=== PATIENT | male | born 1940 | race Caucasian/White ===

== ENCOUNTER → 2022-07-23 | Outpatient (CLI) | payer MEDICARE, BC ==
[2022-07-23 15:47] LABS: ALT 22 U/L (10-49); AST 28 U/L (14-35); African American GFR (CKD) 59.3 (60.0-200.0); Albumin 4.4 g/dL (3.8-4.9); Albumin/Globulin Ratio 1.63 (1.60-3.17); Alkaline Phosphatase 85 U/L (41-126); BUN/Creat Ratio 25.54 Ratio (12.00-20.00); Blood Urea Nitrogen 33.2 mg/dL (9.0-27.0); Calcium 9.8 mg/dL (8.7-10.3); Carbon Dioxide 30.1 mmol/L (20.0-27.5); Chloride 99 mmol/L (96-109); Chol/HDL Ratio 4.23 Ratio; Globulin 2.7 g/dL (1.6-3.3); Glucose 103 mg/dL (70-110); LDL Cholesterol,Calculated 114.7 mg/dL (0.0-131.0); Non-African American GFR(CKD) 51.2 (60.0-200.0); Potassium 3.5 mmol/L (3.5-5.5); Sodium 141 mmol/L (135-145); Total Protein 7.1 g/dL (6.2-8.2)
== END | disposition home or self-care (01) ==
LOC: LABWHC1 09:35
PROVIDERS: ATTEND Internal Medicine Interventional Cardiology
DX: E78.2 Mixed hyperlipidemia (principal)
CPT/HCPCS: 36415; 80053; 80061

== ENCOUNTER 2023-06-07 11:36 | Emergency (ER) | payer MEDICARE, BC ==
--- NOTE | 2023-06-07 13:10 | ED ---
General Adult HPI - General Chief complaint: Headache Stated complaint: Headache Time Seen by Provider: 06/07/23 12:04 Source: patient, RN notes reviewed, old records reviewed Mode of arrival: ambulatory Limitations: no limitations - History of Present Illness Initial comments: 83-year-old male presenting for evaluation of right frontal and retro-orbital headache. Symptoms have been intermittent over the past several days. Patient denies trauma. Denies nasal congestion, denies cough or cold symptoms. Denies fever. He does report some intermittent blurry vision to the right eye. No eye pain currently. No vision change currently. Headache is present but improved from prior severity. No focal numbness or weakness. - Related Data Home Medications Medication Instructions Recorded Confirmed Atorvastatin [Lipitor] 20 mg PO DIRECTED 05/15/22 06/07/23 Escitalopram [Lexapro] 10 mg PO DIRECTED 05/15/22 06/07/23 Finasteride [Proscar] 5 mg PO DAILY 05/15/22 06/07/23 Multivitamins, Thera [Multivitamin 1 tab PO DAILY 05/15/22 06/07/23 (formulary)] Omeprazole [PriLOSEC] 20 mg PO DAILY 05/15/22 06/07/23 amLODIPine [Norvasc] 5 mg PO DIRECTED 05/15/22 06/07/23 Acetaminophen Tab [Tylenol Tab] 500 mg PO BID 06/07/23 06/07/23 Ascorbic Acid [Vitamin C] 500 mg PO DAILY 06/07/23 06/07/23 Cholecalciferol [Vitamin D3 (25 25 mcg PO DAILY 06/07/23 06/07/23 Mcg = 1000 Iu)] Ibuprofen [Motrin Ib] 200 mg PO DAILY 06/07/23 06/07/23 Potassium Chloride ER [K-Dur 20] 20 meq PO DAILY 06/07/23 06/07/23 Previous Rx's Medication Instructions Recorded Chlorthalidone [Hygroton] 25 mg PO DAILY #30 tablet 05/15/22 Allergies Allergy/AdvReac Type Severity Reaction Status Date / Time diflunisal Allergy Rash/Hives Verified 06/07/23 16:09 Review of Systems ROS Statement: Those systems with pertinent positive or pertinent negative responses have been documented in the HPI. ROS Other: All systems not noted in ROS Statement are negative. 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 History of Any Multi-Drug Resistant Organisms: None Reported Past Surgical History: Appendectomy, Tonsillectomy Additional Past Surgical History / Comment(s): right shoulder Past Anesthesia/Blood Transfusion Reactions: No Reported Reaction Past Psychological History: No Psychological Hx Reported Smoking Status: Never smoker Past Alcohol Use History: None Reported Past Drug Use History: None Reported - Past Family History Mother Family Medical History: Coronary Artery Disease (CAD) Father Family Medical History: CVA/TIA General Exam Limitations: no limitations General appearance: alert, in no apparent distress Head exam: Present: atraumatic, normocephalic Eye exam: Present: normal appearance, PERRL, EOMI, other (No proptosis, no periorbital swelling) Neck exam: Present: normal inspection. Absent: tenderness, meningismus Respiratory exam: Present: normal lung sounds bilaterally. Absent: respiratory distress, wheezes Cardiovascular Exam: Present: regular rate, normal rhythm GI/Abdominal exam: Present: soft. Absent: distended, tenderness, guarding Extremities exam: Present: normal inspection, normal capillary refill Neurological exam: Present: alert, oriented X3, CN II-XII intact. Absent: motor sensory deficit Psychiatric exam: Present: normal affect, normal mood Skin exam: Present: warm, dry, intact. Absent: cyanosis, diaphoretic Course Vital Signs 06/07/23 06/07/23 06/07/23 11:43 15:43 16:48 Temperature 97.8 F 98 F Pulse Rate 72 68 70 Respiratory 16 16 18 Rate Blood Pressure 145/61 142/73 137/99 O2 Sat by Pulse 97 100 98 Oximetry Medical Decision Making - Medical Decision Making Was pt. sent in by a medical professional or institution (, PA, EXTRUSION PRESS OPERATOR, urgent care, hospital, or long-term...) When possible be specific @ -No Did you speak to anyone other than the patient for history (EMS, parent, family, police, friend...)? What history was obtained from this source @ -No Did you review nursing and triage notes (agree or disagree)? Why? @ -I reviewed and agree with nursing and triage notes Were old charts reviewed (outside hosp., previous admission, EMS record, old EKG, old radiological studies, urgent care reports/EKG's, long-term records)? Report findings @ -No old charts were reviewed Differential Diagnosis (chest pain, altered mental status, abdominal pain women, abdominal pain men, vaginal bleeding, weakness, fever, dyspnea, syncope, headache, dizziness, GI bleed, back pain, seizure, CVA, palpatations, mental health, musculoskeletal)? @ -[Differential Headache: Migraine, tension, cluster, carbon monoxide, central venous thrombosis, pension karma temporal arteritis, acute closure glaucoma, intercranial hemorrhage, mastoiditis, sinusitis, head injury, this is not meant to be an all-inclusive list. EKG interpreted by me (3pts min.). @ -As above X-rays interpreted by me (1pt min.). @ -None done CT interpreted by me (1pt min.). @CT negative for intracranial hemorrhage or mass effect U/S interpreted by me (1pt. min.). @ -None done What testing was considered but not performed or refused? (CT, X-rays, U/S, labs)? Why? @ -None What meds were considered but not given or refused? Why? @ -None Did you discuss the management of the patient with other professionals (professionals i.e. , PA, EXTRUSION PRESS OPERATOR, lab, RT, psych nurse, social services assistant, semiconductor processing group leader, teacher, chief development officer, social work case manager)? Give summary @ -No Was smoking cessation discussed for >3mins.? @ -No Was critical care preformed (if so, how long)? @ -No Were there social determinants of health that impacted care today? How? (Homelessness, low income, unemployed, alcoholism, drug addiction, transportation, low edu. Level, literacy, decrease access to med. care, custodial, rehab)? @ -No Was there de-escalation of care discussed even if they declined (Discuss DNR or withdrawal of care, Hospice)? DNR status @ -No What co-morbidities impacted this encounter? (DM, HTN, Smoking, COPD, CAD, Cancer, CVA, ARF, Chemo, Hep., AIDS, mental health diagnosis, sleep apnea, morbid obesity)? @ -None Was patient admitted / discharged? Hospital course, mention meds given and route, prescriptions, significant lab abnormalities, going to OR and other pertinent info. @ -83-year-old male with several days of headache. This was gradual onset and intermittent. He has no temporal tenderness. He did have some blurred vision which is resolved. No proptosis. Intraocular pressure is 11. Patient has no focal neurologic findings. He has a normal CBC, CMP showing mild elevation in serum creatinine at 1.29. His CRP is 3. I would prefer an ESR but this is a send out lab and takes 24 hours to result. Patient states he is capable of following up with his primary care provider regarding this lab test. Return parameters discussed. Stable for discharge at this time. Undiagnosed new problem with uncertain prognosis? @ -No Drug Therapy requiring intensive monitoring for toxicity (Heparin, Nitro, Insulin, Cardizem)? @ -No Were any procedures done? @ -No Diagnosis/symptom? @ -Headache Acute, or Chronic, or Acute on Chronic? @ -[Acute Uncomplicated (without systemic symptoms) or Complicated (systemic symptoms)? @ -Default Side effects of treatment? @ -No Exacerbation, Progression, or Severe Exacerbation? @ -No Poses a threat to life or bodily function? How? (Chest pain, [place], [place], pneumonia, PE, COPD, DKA, ARF, appy, cholecystitis, CVA, Diverticulitis, Homicidal, Suicid al, threat to staff... and all critical care pts) @ -No - Lab Data Result diagrams: 06/07/23 14:04 06/07/23 14:04 Lab Results 06/07/23 06/07/23 06/07/23 Range/Units 14:04 14:04 14:04 WBC 9.1 (3.8-10.6) k/uL RBC 5.36 (4.30-5.90) m/uL Hgb 14.4 (13.0-17.5) gm/dL Hct 47.2 (39.0-53.0) % MCV 88.0 (80.0-100.0) fL MCH 26.9 (25.0-35.0) pg MCHC 30.6 L (31.0-37.0) g/dL RDW 15.1 (11.5-15.5) % Plt Count 338 (150-450) k/uL MPV 6.9 Neutrophils % 72 % Lymphocytes % 14 % Monocytes % 8 % Eosinophils % 3 % Basophils % 0 % Neutrophils # 6.6 (1.3-7.7) k/uL Lymphocytes # 1.3 (1.0-4.8) k/uL Monocytes # 0.8 (0-1.0) k/uL Eosinophils # 0.3 (0-0.7) k/uL Basophils # 0.0 (0-0.2) k/uL ESR 39 H (0-20) mm/Hr Sodium 138 (137-145) mmol/L Potassium 3.3 L (3.5-5.1) mmol/L Chloride 100 (98-107) mmol/L Carbon Dioxide 30 (22-30) mmol/L Anion Gap 8 mmol/L BUN 34 H (9-20) mg/dL Creatinine 1.29 H (0.66-1.25) mg/dL Est GFR (CKD-EPI)AfAm 59 (>60 ml/min/1.73 sqM) Est GFR (CKD-EPI)NonAf 51 (>60 ml/min/1.73 sqM) Glucose 97 (74-99) mg/dL Calcium 8.8 (8.4-10.2) mg/dL Total Bilirubin 0.9 (0.2-1.3) mg/dL AST 29 (17-59) U/L ALT 21 (4-49) U/L Alkaline Phosphatase 101 (38-126) U/L C-Reactive Protein 3.0 H (<1.0) mg/dL Total Protein 6.9 (6.3-8.2) g/dL Albumin 4.0 (3.5-5.0) g/dL Influenza Type A (PCR) Not Detected (Not Detectd) Influenza Type B (PCR) Not Detected (Not Detectd) RSV (PCR) Not Detected (Not Detectd) SARS-CoV-2 (PCR) Not Detected (Not Detectd) Disposition Clinical Impression: Headache Disposition: HOME SELF-CARE Condition: Fair Instructions (If sedation given, give patient instructions): Acute Headache (ED) Additional Instructions: He has follow-up with Dr. Johnson regarding your ESR level. Please return with worsening or changing symptoms Is patient prescribed a controlled substance at d/c from ED?: No Referrals: Angelo Johnson MD [Primary Care Provider] - 1-2 days Time of Disposition: 16:15
--- NOTE | 2023-06-07 13:36 | CT ---
EXAMINATION TYPE: CT brain wo con DATE OF EXAM: 06/07/2023 COMPARISON: None HISTORY: Headache CT DLP: 1177.[address] of the brain was performed. The ventricles, basal cisterns and sulci overlying the cerebral convexities demonstrate mild enlargem ent. There is no evidence for intracranial hemorrhage or sulcal effacement. There is decreased attenuation about the periventricular white matter and deep white matter of both c erebral hemispheres, compatible with chronic small vessel ischemia. Differential diagnosis does inclu de demyelination. No mass effects are seen.No midline shift. Osseous calvarium is intact. If symptoms persist consider MRI. IMPRESSION: 1. Age related atrophic and chronic small vessel ischemic change without acute intracranial process s een at this time.
[2023-06-07 14:16] LABS: Basophils % (A) 0 %; Eosinophils # (A) 0.3 k/uL (0-0.7); Eosinophils % (A) 3 %; HCT 47.2 % (39.0-53.0); HGB 14.4 gm/dL (13.0-17.5); Lymphocytes # (A) 1.3 k/uL (1.0-4.8); Lymphocytes % (A) 14 %; MCH 26.9 pg (25.0-35.0); MCHC 30.6 g/dL (31.0-37.0); Mean Platelet Volume 6.9; Monocytes # (A) 0.8 k/uL (0-1.0); Monocytes % (A) 8 %; Neutrophils # (A) 6.6 k/uL (1.3-7.7); Neutrophils % (A) 72 %; Platelet Count 338 k/uL (150-450); RBC 5.36 m/uL (4.30-5.90); RDW 15.1 % (11.5-15.5); WBC 9.1 k/uL (3.8-10.6)
[2023-06-07 14:31] LABS: ALT 21 U/L (4-49); AST 29 U/L (17-59); African American GFR (CKD) 59 (>60 ml/min/1.73 sqM); Alkaline Phosphatase 101 U/L (38-126); Anion Gap 8 mmol/L; Blood Urea Nitrogen 34 mg/dL (9-20); Calcium 8.8 mg/dL (8.4-10.2); Carbon Dioxide 30 mmol/L (22-30); Chloride 100 mmol/L (98-107); Glucose 97 mg/dL (74-99); Non-African American GFR(CKD) 51 (>60 ml/min/1.73 sqM); Potassium 3.3 mmol/L (3.5-5.1); Sodium 138 mmol/L (137-145); Total Bilirubin 0.9 mg/dL (0.2-1.3); Total Protein 6.9 g/dL (6.3-8.2)
[2023-06-07] MEDS: SODIUM CHLORIDE 0.9% 500 ML 500 ML IV ONE (15:38)
[2023-06-07 17:07] VITALS: BP 137/99; PULSE 70; RESP 18; TEMP 98
[2023-06-07 19:01] LABS: Erythrocyte Sedimentation Rate 39 mm/Hr (0-20)
== END 2023-06-07 16:54 | disposition home or self-care (01) ==
LOC: EC 11:36
DX: R51.9 Headache, unspecified (principal); Z11.52 Encounter for screening for COVID-19; Z88.8 Allergy status to other drugs, medicaments and biological substances
CPT/HCPCS: 36415; 70450; 80053; 85025; 85652; 86140; 87636; 96360; 99284

== ENCOUNTER → 2023-06-18 | Outpatient (CLI) | payer MEDICARE, BC ==
[2023-06-18 16:34] LABS: Blood Urea Nitrogen 38.7 mg/dL (9.0-27.0)
== END | disposition home or self-care (01) ==
LOC: LABWHC1 11:16
PROVIDERS: ATTEND Ophthalmology
DX: H47.019 Ischemic optic neuropathy, unspecified eye (principal)
CPT/HCPCS: 36415; 82565; 84520

== ENCOUNTER → 2023-07-02 | Outpatient (CLI) | payer MEDICARE, BC ==
--- NOTE | 2023-07-03 12:30 | MR ---
EXAMINATION TYPE: MR orbits wo/w con DATE OF EXAM: 07/02/2023 COMPARISON: CT brain June 07, 2023 HISTORY: Rt eye vision loss, pain with chewing and swallowing, Giant Cell Arteritis TECHNIQUE: Multiplanar, multisequence images of the brain and brainstem is performed without and with IV contras t, utilizing 6.5 mL intravenous Gadavist . Orbital protocol. FINDINGS: Midline structures demonstrate normal morphology. The craniocervical junction appears within normal limits. Some new focal fluid dependently in the right maxillary sinus axial image 4 series 401. Some new Mild -to-moderate mucosal thickening involving anterior ethmoid sinuses bilaterally. The globes are intact bilaterally. The rectus muscles are symmetric and felt within normal limits. Pi tuitary stalk shows normal enhancement in the midline. Optic chiasm is not effaced. Suprasellar ciste rn is maintained. IMPRESSION: Intraorbital findings within normal limits. Some new paranasal sinus disease is noted.
== END | disposition home or self-care (01) ==
LOC: RADMRIMAIN 09:02
PROVIDERS: ATTEND Ophthalmology
DX: M31.6 Other giant cell arteritis (principal)
CPT/HCPCS: 70543; A9585

== ENCOUNTER 2023-09-03 10:27 | Emergency (ER) | payer MEDICARE, BC ==
--- NOTE | 2023-09-03 12:16 | ED ---
General Adult HPI - General Source: patient Mode of arrival: ambulatory Limitations: no limitations <Juju Verma - Last Filed: 09/03/23 15:50> - General Source: RN notes reviewed, old records reviewed Mode of arrival: ambulatory Limitations: no limitations <Catracho Patel - Last Filed: 09/03/23 18:17> - General Chief complaint: Eye Problems Stated complaint: Eye Problem - History of Present Illness Initial comments: 83-year-old male who presents emergency department with visual disturbance. Patient states he originally started having visual disturbances back in June. He lost the vision in the lower half of his right eye. This has been constant. He was diagnosed with optic neuritis and temporal arteritis. He is under the care of Dr. Henderson. He is currently on a steroid dose and takes 40 mg a day. Patient started having a visual disturbance in his left eye which was previously his good eye. This was 1.5 weeks ago. States he was having blue flashes which is how his visual loss in his right eye for started. He followed up with his primary care doctor today as he was concerned that his good eye would now lose vision. They sent him immediately to the hospital for evaluation. He denies any headaches or temporal pain at this time. No fevers. He denies any numbness, tingling or weakness in his extremities. No history of strokes. No history of MS. the visual disturbance in his left eye is not present at this time. No other alleviating, precipitating or modifying factors (Juju Verma) This is an 83-year-old male to the ER for evaluation of visual disturbance. Patient currently has no vision complaints (Catracho Patel) - Related Data Home Medications Medication Instructions Recorded Confirmed Atorvastatin [Lipitor] 20 mg PO DIRECTED 05/15/22 09/03/23 Escitalopram [Lexapro] 10 mg PO DIRECTED 05/15/22 09/03/23 Finasteride [Proscar] 5 mg PO DAILY 05/15/22 09/03/23 Multivitamins, Thera [Multivitamin 1 tab PO DAILY 05/15/22 09/03/23 (formulary)] Omeprazole [PriLOSEC] 20 mg PO DAILY 05/15/22 09/03/23 amLODIPine [Norvasc] 5 mg PO HS 05/15/22 09/03/23 Acetaminophen Tab [Tylenol Tab] 500 mg PO BID 06/07/23 09/03/23 Ascorbic Acid [Vitamin C] 500 mg PO DAILY 06/07/23 09/03/23 Cholecalciferol [Vitamin D3 (25 25 mcg PO DAILY 06/07/23 09/03/23 Mcg = 1000 Iu)] Ibuprofen [Motrin Ib] 200 mg PO DAILY 06/07/23 09/03/23 Potassium Chloride ER [K-Dur 20] 20 meq PO BID 06/07/23 09/03/23 Brimonidine Tartrate [Alphagan P 1 drop RIGHT EYE BID 09/03/23 09/03/23 0.1% Ophth Soln] predniSONE [Deltasone] 40 mg PO DAILY 09/03/23 09/03/23 Previous Rx's Medication Instructions Recorded Chlorthalidone [Hygroton] 25 mg PO DAILY #30 tablet 05/15/22 Aspirin [Marion Aspirin EC] 81 mg PO BID #60 tab 09/03/23 Allergies Allergy/AdvReac Type Severity Reaction Status Date / Time diflunisal Allergy Rash/Hives Verified 09/03/23 16:01 Review of Systems ROS Other: All systems not noted in ROS Statement are negative. <Juju Verma - Last Filed: 09/03/23 15:50> ROS Other: All systems not noted in ROS Statement are negative. <Catracho Patel - Last Filed: 09/03/23 18:17> ROS Statement: Those systems with pertinent positive or pertinent negative responses have been documented in the HPI. 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, optic neuritis, History of Any Multi-Drug Resistant Organisms: None Reported Past Surgical History: Appendectomy, Tonsillectomy Additional Past Surgical History / Comment(s): right shoulder Past Anesthesia/Blood Transfusion Reactions: No Reported Reaction Past Psychological History: No Psychological Hx Reported Smoking Status: Never smoker Past Alcohol Use History: None Reported Past Drug Use History: None Reported - Past Family History Mother Family Medical History: Coronary Artery Disease (CAD) Father Family Medical History: CVA/TIA <Juju Verma - Last Filed: 09/03/23 15:50> General Exam Limitations: no limitations General appearance: alert, in no apparent distress Head exam: Present: atraumatic, normocephalic, normal inspection Eye exam: Present: normal appearance, PERRL, EOMI. Absent: scleral icterus, conjunctival injection, periorbital swelling ENT exam: Present: normal exam, mucous membranes moist Neck exam: Present: normal inspection. Absent: tenderness, meningismus, lymphadenopathy Respiratory exam: Present: normal lung sounds bilaterally. Absent: respiratory distress, wheezes, rales, rhonchi, stridor Cardiovascular Exam: Present: regular rate, normal rhythm, normal heart sounds. Absent: systolic murmur, diastolic murmur, rubs, gallop, clicks GI/Abdominal exam: Present: soft, normal bowel sounds. Absent: distended, tenderness, guarding, rebound, rigid Extremities exam: Present: normal inspection, full ROM, normal capillary refill. Absent: tenderness, pedal edema, joint swelling, calf tenderness Back exam: Present: normal inspection Neurological exam: Present: alert, oriented X3, CN II-XII intact Psychiatric exam: Present: normal affect, normal mood Skin exam: Present: warm, dry, intact, normal color. Absent: rash <Juju Verma A - Last Filed: 09/03/23 15:50> General appearance: alert, in no apparent distress Head exam: Present: atraumatic, normocephalic, normal inspection Eye exam: Present: normal appearance, PERRL, EOMI. Absent: scleral icterus, conjunctival injection, periorbital swelling ENT exam: Present: normal exam, mucous membranes moist Neck exam: Present: normal inspection. Absent: tenderness, meningismus, lymphadenopathy Respiratory exam: Present: normal lung sounds bilaterally. Absent: respiratory distress, wheezes, rales, rhonchi, stridor Cardiovascular Exam: Present: regular rate, normal rhythm, normal heart sounds. Absent: systolic murmur, diastolic murmur, rubs, gallop, clicks GI/Abdominal exam: Present: soft, normal bowel sounds. Absent: distended, tenderness, guarding, rebound, rigid Extremities exam: Present: normal inspection, full ROM, normal capillary refill. Absent: tenderness, pedal edema, joint swelling, calf tenderness Back exam: Present: normal inspection Neurological exam: Present: alert, oriented X3, CN II-XII intact Psychiatric exam: Present: normal affect, normal mood Skin exam: Present: warm, dry, intact, normal color. Absent: rash <Catracho Patel - Last Filed: 09/03/23 18:17> Course <Catracho Patel - Last Filed: 09/03/23 18:17> Vital Signs 09/03/23 09/03/23 09/03/23 10:33 13:53 16:00 Temperature 97.3 F L 97.5 F L 98.1 F Pulse Rate 84 71 74 Respiratory 18 16 16 Rate Blood Pressure 109/61 123/72 118/79 O2 Sat by Pulse 97 99 99 Oximetry - Reevaluation(s) Reevaluation #1: 09/03/23 18:16 Medical records reviewed (Catracho Patel) Reevaluation #2: 09/03/23 18:16 Patient symptoms remain resolved (Catracho Patel) - Consultations Consultation #1: Patient was seen by Dr. Chand for neurology, Dr. Shepherd did see this patient prescribing aspirin and statin (Catracho Patel) Medical Decision Making - Lab Data Result diagrams: 09/03/23 12:24 09/03/23 12:24 <Juju Verma - Last Filed: 09/03/23 15:50> - Lab Data Result diagrams: 09/03/23 12:24 09/03/23 12:24 <Catracho Patel - Last Filed: 09/03/23 18:17> - Medical Decision Making Was pt. sent in by a medical professional or institution (, PA, OPINION POLLS SURVEY WORKER, urgent care, hospital, or correction...) When possible be specific @ -[No] Did you speak to anyone other than the patient for history (EMS, parent, family, police, friend...)? What history was obtained from this source @ -[No] Did you review nursing and triage notes (agree or disagree)? Why? @ -[I reviewed and agree with nursing and triage notes] Were old charts reviewed (outside hosp., previous admission, EMS record, old EKG, old radiological studies, urgent care reports/EKG's, correction records)? Report findings @ -[No old charts were reviewed] Differential Diagnosis (chest pain, altered mental status, abdominal pain women, abdominal pain men, vaginal bleeding, weakness, fever, dyspnea, syncope, headache, dizziness, GI bleed, back pain, seizure, CVA, palpatations, mental health, musculoskeletal)? @ -[not applicable] EKG interpreted by me (3pts min.). @ -[As above] X-rays interpreted by me (1pt min.). @ -[None done] CT interpreted by me (1pt min.). @ -[None done] U/S interpreted by me (1pt. min.). @ -[None done] What testing was considered but not performed or refused? (CT, X-rays, U/S, labs)? Why? @ -[None] What meds were considered but not given or refused? Why? @ -[None] Did you discuss the management of the patient with other professionals (professionals i.e. , PA, OPINION POLLS SURVEY WORKER, lab, RT, psych nurse, psychosocial rehabilitation counselor, histology aide, teacher, chief wellness officer, trimming caser)? Give summary @ -Spoke with Dr. Shepherd who is can to come see the patient. Patient will be signed out to Dr. Patel Was smoking cessation discussed for >3mins.? @ -[No] Was critical care preformed (if so, how long)? @ -[No] Were there social determinants of health that impacted care today? How? (Homelessness, low income, unemployed, alcoholism, drug addiction, transportation, low edu. Level, literacy, decrease access to med. care, penitentiary, re hab)? @ -[No] Was there de-escalation of care discussed even if they declined (Discuss DNR or withdrawal of care, Hospice)? DNR status @ -[No] What co-morbidities impacted this encounter? (DM, HTN, Smoking, COPD, CAD, Cancer, CVA, ARF, Chemo, Hep., AIDS, mental health diagnosis, sleep apnea, morbi d obesity)? @ -[None] Was patient admitted / discharged? Hospital course, mention meds given and ro yocha dehe, prescriptions, significant lab abnormalities, going to OR and other pertinent info. @ -[hospital course] Undiagnosed new problem with uncertain prognosis? @ -[No] Drug Therapy requiring intensive monitoring for toxicity (Heparin, Nitro, Insulin, Cardizem)? @ -[No] Were any procedures done? @ -[No] Diagnosis/symptom? @ -[default] Acute, or Chronic, or Acute on Chronic? @ -[default] Uncomplicated (without systemic symptoms) or Complicated (systemic symptoms)? @ -[default] Side effects of treatment? @ -[No] Exacerbation, Progression, or Severe Exacerbation? @ -[No] Poses a threat to life or bodily function? How? (Chest pain, [place], [place], pneumonia, PE, COPD, DKA, ARF, appy, cholecystitis, CVA, Diverticulitis, Homicidal, Suicidal, threat to staff... and all critical care pts) @ -[No] (Juju Verma) 83 male to the emergency department today, will send out lab testing of ESR, patient will continue steroids started on aspirin and can be discharged home wi th no current vision loss (Catracho Patel) - Lab Data Lab Results 09/03/23 09/03/23 Range/Units 12:24 12:24 WBC 8.0 (3.8-10.6) k/uL RBC 5.29 (4.30-5.90) m/uL Hgb 15.6 (13.0-17.5) gm/dL Hct 48.2 (39.0-53.0) % MCV 91.2 (80.0-100.0) fL MCH 29.4 (25.0-35.0) pg MCHC 32.3 (31.0-37.0) g/dL RDW 17.1 H (11.5-15.5) % Plt Count 163 (150-450) k/uL MPV 7.6 Neutrophils % 86 % Lymphocytes % 7 % Monocytes % 6 % Eosinophils % 1 % Basophils % 0 % Neutrophils # 6.9 (1.3-7.7) k/uL Lymphocytes # 0.6 L (1.0-4.8) k/uL Monocytes # 0.5 (0-1.0) k/uL Eosinophils # 0.1 (0-0.7) k/uL Basophils # 0.0 (0-0.2) k/uL Anisocytosis Slight Sodium 136 L (137-145) mmol/L Potassium 3.5 (3.5-5.1) mmol/L Chloride 99 (98-107) mmol/L Carbon Dioxide 31 H (22-30) mmol/L Anion Gap 6 mmol/L BUN 39 H (9-20) mg/dL Creatinine 0.98 (0.66-1.25) mg/dL Est GFR (CKD-EPI)AfAm 83 (>60 ml/min/1.73 sqM) Est GFR (CKD-EPI)NonAf 72 (>60 ml/min/1.73 sqM) Glucose 150 H (74-99) mg/dL Calcium 9.2 (8.4-10.2) mg/dL Total Bilirubin 1.5 H (0.2-1.3) mg/dL AST 29 (17-59) U/L ALT 40 (4-49) U/L Alkaline Phosphatase 57 (38-126) U/L Total Protein 5.7 L (6.3-8.2) g/dL Albumin 3.6 (3.5-5.0) g/dL Disposition <Juju Verma - Last Filed: 09/03/23 15:50> Is patient prescribed a controlled substance at d/c from ED?: No Time of Disposition: 17:00 <Catracho Patel - Last Filed: 09/03/23 18:17> Clinical Impression: Vision loss Disposition: HOME SELF-CARE Condition: Good Instructions (If sedation given, give patient instructions): Blurred Vision (ED) Prescriptions: Aspirin [Marion Aspirin EC] 81 mg PO BID #60 tab Referrals: Angelo Johnson MD [Primary Care Provider] - 1-2 days
[2023-09-03 12:31] LABS: Anisocytosis Slight; Basophils % (A) 0 %; Eosinophils # (A) 0.1 k/uL (0-0.7); Eosinophils % (A) 1 %; HCT 48.2 % (39.0-53.0); HGB 15.6 gm/dL (13.0-17.5); Lymphocytes # (A) 0.6 k/uL (1.0-4.8); Lymphocytes % (A) 7 %; MCH 29.4 pg (25.0-35.0); MCHC 32.3 g/dL (31.0-37.0); MCV 91.2 fL (80.0-100.0); Mean Platelet Volume 7.6; Monocytes # (A) 0.5 k/uL (0-1.0); Monocytes % (A) 6 %; Neutrophils # (A) 6.9 k/uL (1.3-7.7); Neutrophils % (A) 86 %; Platelet Count 163 k/uL (150-450); RBC 5.29 m/uL (4.30-5.90); RDW 17.1 % (11.5-15.5)
[2023-09-03 12:39] LABS: ALT 40 U/L (4-49); AST 29 U/L (17-59); African American GFR (CKD) 83 (>60 ml/min/1.73 sqM); Albumin 3.6 g/dL (3.5-5.0); Alkaline Phosphatase 57 U/L (38-126); Anion Gap 6 mmol/L; Blood Urea Nitrogen 39 mg/dL (9-20); Calcium 9.2 mg/dL (8.4-10.2); Carbon Dioxide 31 mmol/L (22-30); Chloride 99 mmol/L (98-107); Glucose 150 mg/dL (74-99); Non-African American GFR(CKD) 72 (>60 ml/min/1.73 sqM); Potassium 3.5 mmol/L (3.5-5.1); Sodium 136 mmol/L (137-145); Total Bilirubin 1.5 mg/dL (0.2-1.3); Total Protein 5.7 g/dL (6.3-8.2)
[2023-09-03 13:56] VITALS: RESP 16
--- NOTE | 2023-09-03 14:59 | CT ---
EXAMINATION TYPE: CT brain wo con CT DLP: 1445.2 mGycm, Automated exposure control for dose reduction was used. DATE OF EXAM: 09/03/2023 1:30 PM COMPARISON: 06/07/2023. CLINICAL INDICATION:Male, 83 years old with history of visual disturbance, vision changes, loss of vi alden both eyes TECHNIQUE: Brain: Axial CT images of the brain were obtained with coronal and sagittal reformats created and rev iewed. Contrast used: None. Oral contrast used: None. FINDINGS: Brain: Extra-axial spaces: No abnormal extra-axial fluid collections. Ventricular system: Within normal limits Cerebral parenchyma: No acute intraparenchymal hemorrhage or mass effect. The saldaña-white junction is well differentiated. Cerebellum: Unremarkable. Mass effect: No evidence of midline shift. Intracranial vasculature: unremarkable Soft tissues: Normal. Calvarium/osseous structures: No depressed skull fracture. Paranasal sinuses and mastoid air cells: Mild scattered paranasal sinus disease. Visualized orbits: Orbital contents are intact. IMPRESSION: No acute intracranial process.
--- NOTE | 2023-09-03 15:07 | CT ---
EXAMINATION TYPE: CT angio head neck DATE OF EXAM: 09/03/2023 COMPARISON: HISTORY: vision changes, loss of vision both eyes CT DLP: 1445.2 mGycm CONTRAST: CTA cervical carotids is performed and without and with IV Contrast, patient injected with 65 mL of I sovue 370. Contrast CTA of the cervical carotids was performed 3-D reconstruction imaging obtained at a separate workstation. Right carotid system: Mild plaque is seen of the right common carotid artery. There is mild plaque a lso noted at the carotid bulb. Estimated diameter reduction is . ECA is patent. Right vertebral a rtery appears unremarkable. Left carotid system: Mild plaque is seen of the left common carotid artery. There is mild plaque als o noted at the carotid bulb. Estimated diameter reduction is . ECA is patent. Left vertebral arter y appears unremarkable. IMPRESSION: 1. Estimated diameter reduction Right ICA 2. Estimated diameter reduction Left ICA NASCET criteria was used in interpretation of this exam?
[2023-09-03 16:16] VITALS: BP 118/79; PULSE 74; TEMP 98.1
[2023-09-03] MEDS: ASPIRIN 325 MG TAB PO STA (17:16)
--- NOTE | 2023-09-03 18:25 | P.CNNES ---
History of Present Illness Consult date: 09/03/23 Requesting physician: Juju Verma Reason for Consult: Visual disturbance History of Present Illness: Patient is a 83-year-old left-handed male with history of hypertension, hyperlipidemia, temporal arteritis, currently on high-dose prednisone, came to the hospital today at 10:27 AM for recurrent visual disturbance in the normal left eye. Patient states that he was diagnosed with temporal arteritis in June 2023 after he suffered from recurrent visual disturbance, like "blue dots in the vision". It happened about 6 times, until finally a week later it resulted in lower altitudinal visual field defect in the right eye. He had elevated ESR, and underwent temporal artery biopsy in [facility], which according to the patient was positive for temporal arteritis. He was placed on prednisone 60 mg daily, and now is being tapered off slowly, now at 40 mg daily. His left eye has been completely normal all the way through. Patient also received some infusions once a month through his biostatistician. His next infusion is due on 09/21/2023. Patient states that about 1 week ago, he noticed big blue dots in the left eye, that lasted for about 5 minutes and then went away. He had a similar event in the left eye 2 days ago on Wednesday in the morning, again lasted for 5 minutes and went away. He spoke to his primary physician Dr. Johnson, who recommended patient to go to the ER. Patient states that visual disturbance has resolved with the left eye. His right eye continues to have the altitudinal defect as mentioned above. He denies any other focal neurological symptoms like numbness tingling, focal weakness, slurred speech or any problem with the balance. Vital signs on arrival blood pressure 109/61, pulse 84 temperature 97.3. Blood test shows normal CBC, CMP. Sodium 136. CT head revealed no acute intracranial process. I personally reviewed CT head, agree with the findings. CTA of head and neck revealed estimated diameter reduction right ICA estimated diameter reduction left ICA. Patient had an MRI of the orbits with and without contrast on 07/03/2023, which revealed intraorbital findings within normal limits. Some new paranasal sinus disease is noted. I personally reviewed MRI, agree with the findings. Home medications include prednisone 40 mg, potassium, multivitamins, amlodipine 5 mg, Lipitor 20 mg, Lexapro 10 mg, omeprazole, chlorthalidone 25 mg and finasteride 5 mg. Patient does not take any antiplatelet medication at home. He used to take aspirin, but stopped taking it in early this year 2023. Patient has never smoked, does not drink alcohol. He does have hypertension and hyperlipidemia. No diabetes. Patient also has been diagnosed with Mnire's disease for which she is on chlorthalidone. Patient has history of bilateral rotator cuff tears, status post surgery on the right. Review of Systems Completely unremarkable except as pertinent positives and negatives mentioned in the HPI. 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, optic neuritis, History of Any Multi-Drug Resistant Organisms: None Reported Past Surgical History: Appendectomy, Tonsillectomy Additional Past Surgical History / Comment(s): right shoulder Past Anesthesia/Blood Transfusion Reactions: No Reported Reaction Past Psychological History: No Psychological Hx Reported Smoking Status: Never smoker Past Alcohol Use History: None Reported Past Drug Use History: None Reported - Past Family History Mother Family Medical History: Coronary Artery Disease (CAD) Father Family Medical History: CVA/TIA Medications and Allergies Home Medications Medication Instructions Recorded Confirmed Type Atorvastatin [Lipitor] 20 mg PO HS 05/15/22 09/03/23 History Chlorthalidone [Hygroton] 25 mg PO DAILY #30 tablet 05/15/22 09/03/23 Rx Escitalopram [Lexapro] 10 mg PO DAILY 05/15/22 09/03/23 History Finasteride [Proscar] 5 mg PO DAILY 05/15/22 09/03/23 History Multivitamins, Thera [Multivitamin 1 tab PO DAILY 05/15/22 09/03/23 History (formulary)] Omeprazole [PriLOSEC] 20 mg PO DAILY 05/15/22 09/03/23 History amLODIPine [Norvasc] 5 mg PO HS 05/15/22 09/03/23 History Acetaminophen Tab [Tylenol Tab] 500 mg PO BID 06/07/23 09/03/23 History Ascorbic Acid [Vitamin C] 500 mg PO DAILY 06/07/23 09/03/23 History Cholecalciferol [Vitamin D3 (25 25 mcg PO DAILY 06/07/23 09/03/23 History Mcg = 1000 Iu)] Ibuprofen [Motrin Ib] 200 mg PO DAILY 06/07/23 09/03/23 History Potassium Chloride ER [K-Dur 20] 20 meq PO BID 06/07/23 09/03/23 History Aspirin [[place] Aspirin EC] 81 mg PO BID #60 tab 09/03/23 Rx Brimonidine Tartrate [Alphagan P 1 drop RIGHT EYE BID 09/03/23 09/03/23 History 0.1% Ophth Soln] predniSONE [Deltasone] 40 mg PO DAILY 09/03/23 09/03/23 History Allergies Allergy/AdvReac Type Severity Reaction Status Date / Time diflunisal Allergy Rash/Hives Verified 09/03/23 16:01 Physical Examination - Vital Signs Vital Signs: Vital Signs Temp Pulse Resp BP Pulse Ox 09/03/23 16:00 98.1 F 74 16 118/79 99 09/03/23 13:53 97.5 F L 71 16 123/72 99 09/03/23 10:33 97.3 F L 84 18 109/61 97 Intake and Output 09/03/23 09/03/23 09/03/23 06:59 14:59 22:59 Other: Weight 65.771 kg Patient is an elderly male, very pleasant, in no acute distress. Patient is alert awake oriented to time place and person. Speech and language functions are normal. Patient can name and repeat very well. No aphasia or d ysarthria. Attention, concentration and fund of knowledge is adequate. On cranial nerve examination, pupils are equal, round and reacting to light, visual naik are full on confrontation, with no neglect on double simultaneous stimulation. 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 Extraocular muscles are intact with no nystagmus. Face is symmetric, tongue protrudes to the midline. Palatal elevation and sensation normal, hearing is slightly decreased, but normal for routine conversation. He uses hearing aids. He has shoulder shrug normal, facial sensation normal. On muscle strength testing, there is no pronator drift and the strength is normal in arms and legs distally and proximally. Deep tendon reflexes are symmetric and plantars downgoing bilaterally. Sensory to touch is equal with no neglect on double simultaneous stimulation. Cerebellar function showed no ataxia for [id number] testing. No dysdiadochokinesia. No ataxia for [id number] testing on either side. Tone and bulk of muscles normal. Gait deferred.. On general examination, there is no carotid bruit or murmur, S1-S2 audible. Chest is clear on consultation. Abdomen is soft nontender. No organomegaly, bowel sounds present. Peripheral pulses are present. No peripheral edema. Patient does have multiple bruises noted on his arms, likely from use of steroids. Results - Laboratory Findings CBC and BMP: 09/03/23 12:24 09/03/23 12:24 Abnormal Lab Findings: Abnormal Labs 09/03/23 09/03/23 12:24 12:24 RDW 17.1 H Lymphocytes # 0.6 L Sodium 136 L Carbon Dioxide 31 H BUN 39 H Glucose 150 H Total Bilirubin 1.5 H Total Protein 5.7 L Assessment and Plan Assessment: * Recurrent (x 2) visual disturbance left eye, each lasting for 5 minutes. Rule out TIA. Rule out ischemic optic neuropathy. * History of partial vision loss right eye in June 2023, status temporal artery post biopsy, which confirmed temporal arteritis. * Hypertension * Hyperlipidemia Plan: * Patient has possible TIA/amaurosis fugax manifesting with recurrent left visual disturbance. Patient currently not taking any antiplatelet medication. * Patient will be given aspirin 324 mg x 1 dose, and continue aspirin 81 mg t wice daily. I would avoid dual antiplatelet therapy because of significant bruises already noticed in the arms, and risk of bleeding. * CTA of head and neck revealed estimated diameter reduction right ICA estimated diameter reduction left ICA. * 2D echo 05/15/2022 showed normal left ventricular cavity size, with EF 55 to 60%. Normal left atrial size. No valvular abnormalities. * Check hemoglobin A1c * Lipid panel from 07/23/2022 with cholesterol 185, LDL 114, HDL 43 and triglycerides 133. Patient takes Lipitor 20 mg daily. Recommend increasing dose to 40 mg daily. * Recommend patient follow-up with biostatistician within 1 week. * Continue prednisone 40 mg daily. * ESR pending. * Neurologically clear for discharge. Discussed with ED staff. * Thank you for the consult. Addendum: (09/04/2023, 12:20 PM) ESR 4 Hemoglobin A1c 7.3, consistent with diabetes. I called patient's home, and informed him above results. Patient probably may have developed diabetes related to prednisone. Recommended patient to follow-up with his primary physician to address diabetes. Patient informed me that he has not had any visual symptoms since yesterday.
[2023-09-03 19:03] LABS: Erythrocyte Sedimentation Rate 4 mm/Hr (0-20)
== END 2023-09-03 20:27 | disposition home or self-care (01) ==
LOC: EC 10:27
DX: H54.7 Unspecified visual loss (principal); Z88.6 Allergy status to analgesic agent
CPT/HCPCS: 36415; 80053; 85652; 85025; 83036; 70496; 70450; 70498; 99284; Q9967

== ENCOUNTER → 2024-01-26 | Outpatient (CLI) | payer MEDICARE, BC ==
--- NOTE | 2024-01-26 12:49 | XR ---
EXAMINATION TYPE: XR chest 2V DATE OF EXAM: 01/26/2024 12:42 PM COMPARISON: Chest radiographs from 05/14/2022 TECHNIQUE: XR chest 2V Frontal and lateral views of the chest. CLINICAL INDICATION:Male, 83 years old with history of R05.1ACUTE COUGH R07.1 CHEST PAIN ON BREATHING ; FINDINGS: Lungs/Pleura: There is flattening of the diaphragm with increased lucency of the lungs. No evidence o f pneumothorax, pleural effusion or focal consolidation. Pulmonary vascularity: Unremarkable. Heart/mediastinum: Cardiomediastinal silhouette is unremarkable. Atherosclerotic calcifications are seen in the aorta. Musculoskeletal: No acute osseous pathology. Hydrating right humeral head suggestive of rotator cuff tear. IMPRESSION: 1. No acute cardiopulmonary disease process. 2. COPD changes. [facility], , 01/26/2024 12:47 PM
== END | disposition home or self-care (01) ==
LOC: RADXRMAIN 12:17
PROVIDERS: ATTEND Internal Medicine Rheumatology
DX: I70.0 Atherosclerosis of aorta (principal); J44.9 Chronic obstructive pulmonary disease, unspecified
CPT/HCPCS: 71046